=== PATIENT | female | born 1940 | race Caucasian/White ===

== ENCOUNTER → 2024-09-17 | Outpatient (CLI) | payer MEDICARE ==
[2024-09-17 12:25] LABS: Source, Urine Clean Catch
== END | disposition home or self-care (01) ==
LOC: LAB SHORT 12:23 → LAB 12:23
PROVIDERS: Chiropractor
DX: N39.0 Urinary tract infection, site not specified (principal); R82.4 Acetonuria
CPT/HCPCS: 81015; 87077; 87086; 87186

== ENCOUNTER 2024-09-27 08:30 | Inpatient (IN) | payer MEDICARE ==
[~2024-09-27] VITALS: Ht 152.4 cm; Wt 45.4 kg
[2024-09-27 09:02] LABS: Source, Urine Clean Catch
[2024-09-27] MEDS ORDERED: NS 1,000 ML IV SCH ×3 (09:05→11:50)
[2024-09-27 09:07] LABS: BASOPHILS ABSOLUTE AUTO 0.03 K/mm3 (0.00-0.23); BASOPHILS PERCENT AUTO 0 % (0-2); EOSINOPHILS ABSOLUTE AUTO 0.01 K/mm3 (0.00-0.68); EOSINOPHILS PERCENT AUTO 0 % (0-6); Hematocrit 43.3 % (33.0-51.0); Hemoglobin 14.5 g/dL (11.5-16.0); IMMATURE GRAN ABSOLUTE AUTO 0.08 K/mm3 (0.00-0.10); IMMATURE GRAN PERCENT AUTO 1 % (0-1); LYMPHOCYTES ABSOLUTE AUTO 2.38 K/mm3 (0.84-5.20); LYMPHOCYTES PERCENT AUTO 22 % (21-46); MONOCYTES ABSOLUTE AUTO 0.92 K/mm3 (0.16-1.47); MONOCYTES PERCENT AUTO 9 % (4-13); Mean Corpuscular HGB Conc 33.5 g/dL (31.5-36.5); Mean Corpuscular Volume 86 fL (80-100); NEUTROPHILS ABSOLUTE AUTO 7.28 K/mm3 (1.96-9.15); NEUTROPHILS PERCENT AUTO 68 % (41-73); NRBC ABSOLUTE 0.00 K/mm3 (0.00-0.02); NRBC Auto 0.0 /100 WBC (0.0-0.2); Platelet Count 252 K/mm3 (150-400); RDW Coefficient Variation 13.7 % (11.7-14.2); RDW Standard Deviation 42.5 fL (35.1-46.3)
[2024-09-27 09:22] LABS: Bilirubin, Urine Neg (Neg); Color, Urine Yellow (P-Yellow); Glucose Qualitative, Urine Neg (Neg); Ketones, Urine 3+ (Neg); Leukocyte Esterase, Urine 1+ (Neg); Protein, Urine 2+ (Neg); Specific Gravity, Urine 1.030 (1.003-1.022); Urobilinogen, Urine NORM (Normal)
[2024-09-27 09:35] LABS: Red Blood Cells, Urine 0-2 /hpf (0-2)
[2024-09-27 09:46] LABS: Osmolality, Serum 308.0 mos/KG (275-300)
[2024-09-27 10:09] LABS: Creatinine, Urine Random 77.1 mg/dL (27.00-270.00); Sodium, Urine, Random 9.0 mmol/L (20-110); Urea Nitrogen, Urine, Random 799.0 mg/dL (350-1000)
[2024-09-27 10:09] LABS: Alanine Aminotransfer (ALT/SGP 37.0 U/L (12-78); Albumin, Blood 2.8 g/dL (3.4-5.0); Albumin/Globulin Ratio 0.5 (0.8-1.8); Anion Gap 13.0 mmol/L (3-11); Aspartate Aminotrans (AST/SGOT 63.0 U/L (12-37); Bilirubin, Total 0.7 mg/dL (0.1-1.0); Blood Urea Nitrogen 48.0 mg/dL (8-24); CO2, Blood 30.0 mmol/L (21-32); Calcium, Blood 15.2 mg/dL (8.5-10.1); Chloride, Blood 89.0 mmol/L (98-108); Creatinine, Blood 1.04 mg/dL (0.40-1.00); Globulin, Blood 5.3 g/dL (2.2-4.0); Glucose, Blood 102.0 mg/dL (70-99); Potassium, Blood 3.2 mmol/L (3.5-5.5); Sodium, Blood 129.0 mmol/L (136-145); Total Protein, Blood 8.1 g/dL (6.4-8.2)
[2024-09-27] MEDS ORDERED: CefTRIAXone Sodium 1,000 MG in NS 100 ML IV ONE (10:15)
[2024-09-27] MEDS ORDERED: Calcitonin Salmon 200 IU/ML 2ML Vial IM ONE (10:20)
[2024-09-27 10:44] LABS: Magnesium, Blood 1.7 mg/dL (1.6-2.4); Phosphorus, Blood 3.3 mg/dL (2.5-4.9)
[2024-09-27 15:14] VITALS: BP 154/83
[2024-09-27] MEDS ORDERED: Polyethylene Glycol 3350 17 gm PO SCH (17:00)
[2024-09-27 19:47] VITALS: BP 117/95
[2024-09-27] MEDS ORDERED: OxyCODONE 5 mg/Acetamin 325 mg TABLET PO PRN (21:55)
[2024-09-28 04:30] VITALS: BP 165/58
--- NOTE | 2024-09-28 05:07 | NUR ---
SHIFT SUMMARY PT ADMITTED DUE TO INCREASED WEAKNESS, BHAVANA AND UTI. A&OX3. ABLE TO MAKE NEEDS KNOWN BUT HAS INTERMITTENT CONFUSION. BLADDER SCAN PERFORMED DUE TO DIFFICULTY URINATING AND SCAN SHOWED URINE RETENTION OF >450 MLS. STRAIGHT CATH PERFORMED AND 650 MLS LIGHT YELLOW URINE REMOVED. PT ALSO VERY CONSTIPATED. HAD XLARGE BM WITH ASSISTANCE. PT ABLE TO TAKE A FEW BITES OF FOOD BUT THEN REFUSED. DRINKING WATER WITH ASSISTANCE. WAS ABLE TO DRINK APPROXIMATELY HALF OF AN ENSURE. SIGNIFICANT PAIN THROUGHOUT SHIFT. NEW ORDERS RECEIVED FOR PERCOCET WHICH WAS GIVEN. PAIN BETTER MANAGED WITH THIS AND PT WAS ABLE TO SLEEP. PALLIATIVE CARE CONSULT ORDERED DUE TO CONCERN FOR FAILURE TO THRIVE. PT CURRENTLY RESTING IN BED AT LOWEST POSITION, RAILS X 2 AND CALL LIGHT WITHIN REACH.
[2024-09-28 05:49] LABS: Hematocrit 36.6 % (33.0-51.0); Hemoglobin 12.2 g/dL (11.5-16.0); Mean Corpuscular HGB Conc 33.3 g/dL (31.5-36.5); Mean Corpuscular Volume 87 fL (80-100); NRBC ABSOLUTE 0.00 K/mm3 (0.00-0.02); NRBC Auto 0.0 /100 WBC (0.0-0.2); Platelet Count 197 K/mm3 (150-400); RDW Coefficient Variation 13.8 % (11.7-14.2); RDW Standard Deviation 43.8 fL (35.1-46.3)
[2024-09-28 06:21] LABS: Magnesium, Blood 1.3 mg/dL (1.6-2.4)
[2024-09-28 06:26] LABS: Alanine Aminotransfer (ALT/SGP 28.0 U/L (12-78); Albumin, Blood 2.3 g/dL (3.4-5.0); Albumin/Globulin Ratio 0.6 (0.8-1.8); Anion Gap 8.0 mmol/L (3-11); Aspartate Aminotrans (AST/SGOT 43.0 U/L (12-37); Bilirubin, Total 0.5 mg/dL (0.1-1.0); Blood Urea Nitrogen 36.0 mg/dL (8-24); CO2, Blood 26.0 mmol/L (21-32); Chloride, Blood 105.0 mmol/L (98-108); Creatinine, Blood 0.86 mg/dL (0.40-1.00); Globulin, Blood 4.1 g/dL (2.2-4.0); Glucose, Blood 123.0 mg/dL (70-99); Phosphorus, Blood 1.6 mg/dL (2.5-4.9); Potassium, Blood 3.2 mmol/L (3.5-5.5); Sodium, Blood 136.0 mmol/L (136-145); Total Protein, Blood 6.4 g/dL (6.4-8.2)
[2024-09-28 06:27] LABS: Calcium, Blood 10.5 mg/dL (8.5-10.1)
--- NOTE | 2024-09-28 07:04 | NUR ---
STRAIGHT CATH WAS DONE PT STILL HAD NO OUTPUT AND KEPT STATING THAT SHE FELT LIKE SHE NEEDED TO GO BUT EVEN AFTER SEVERAL ATTEMPTS WAS UNABLE TO GO. MD HAD ORDERED TO PUT IN A ALFONSO IF PT WASNT ABLE TO URINATE AFTER FIRST STRAIGHT CATH WAS DONE. ALFONSO CATH WAS PUT IN PT TOLERATED WELL
[2024-09-28 07:41] VITALS: BP 159/68
[2024-09-28] MEDS ORDERED: Lidocaine 4% 1 Patch TOP SCH (09:00)
[2024-09-28] MEDS ORDERED: Enoxaparin 30 MG/0.3 ML SYR SC SCH (09:00)
[2024-09-28] MEDS ORDERED: CefTRIAXone Sodium 1,000 MG in NS 100 ML IV SCH (09:00)
[2024-09-28] MEDS ORDERED: Potassium Chloride 10 Meq Tablet SA PO ONE (09:50)
[2024-09-28] MEDS ORDERED: Potassium Phosphate Dibasic 30 MM in Dextrose 5% 500 ML IV STA (10:18)
[2024-09-28] MEDS ORDERED: Magnesium Sulf 2 GM/Water 50ML 50 ML IV ONE (10:20)
[2024-09-28 15:18] VITALS: BP 166/75
[2024-09-28] MEDS ORDERED: Ergocalciferol 50000 Intn'l Units PO SCH (17:00)
--- NOTE | 2024-09-28 18:12 | NUR ---
SUMMARY- PT A/O X3, WITHDRAWN VERBAL AND PLEASANT. TOLERATING SIPS WATER AND ABOUT 10-25% OF EACH MEAL. GOT UP WITH PHYSICAL THERAPY TO THE CHAIR FOR A FEW MINUTES AND BACK TO BED SHE WAS SOILED. PT TURNED Q2 WHILE IN BED. MEDICATED WITH PERCOCET 5MG APPROX Q4-5 HRS. PT STATES PARTIAL RELEIF BUT STILL FEELS TOO MUCH PAIN FOR GETTING UP OOB. PT HAD BEEN UNABLE TO VOID LAST NIGHT FOR THE 2ND TIME SO ALFONSO PLACED 0630. DRAINING MED/LIGHT YELLOW. PT HAD MULT ELECTROLYTE REPLACEMENT TODAY, WILL FOLLOW UP IN AM. VSS, AFIBRILE. SISTER IN THE ROOM MOST OF THE DAY, INVOLVED IN PT'S CARE. WILL REPORT TO NOC MAGALIS
[2024-09-28 19:19] VITALS: BP 167/72
[2024-09-29 04:16] VITALS: BP 184/69
[2024-09-29 05:45] LABS: Magnesium, Blood 1.5 mg/dL (1.6-2.4)
[2024-09-29 05:46] LABS: Anion Gap 8.0 mmol/L (3-11); Blood Urea Nitrogen 29.0 mg/dL (8-24); CO2, Blood 25.0 mmol/L (21-32); Calcium, Blood 10.6 mg/dL (8.5-10.1); Chloride, Blood 105.0 mmol/L (98-108); Creatinine, Blood 0.82 mg/dL (0.40-1.00); Glucose, Blood 103.0 mg/dL (70-99); Phosphorus, Blood 3.1 mg/dL (2.5-4.9); Potassium, Blood 3.6 mmol/L (3.5-5.5); Sodium, Blood 134.0 mmol/L (136-145)
--- NOTE | 2024-09-29 05:54 | NUR ---
SHIFT SUMMARY PT HERE FOR BHAVANA. SHE HAS BEEN RESTING IN BED OVERNIGHT. SHE HAS BEEN ON BEDREST, DUE TO LUMBAR FRACTURE. PT HAS ALSO HAD A LOW DESIRE TO MOVE DUE TO THIS FRACTURE. PT HAS BEEN AOX4, WITH FORGETFULNESS EPISODICALLY. SHE HAS CALLED APPROPRIATELY. PT HAS HAD ALFONSO CATHETER, PATENT AND DRAINING BY GRAVITY. OTHER THAN PAIN, SHE HAS HAD NO COMPLAINTS OVERNIGHT. PT HAD UNEVENTFUL NIGHT.
[2024-09-29 07:14] VITALS: BP 177/70
[2024-09-29] MEDS ORDERED: Magnesium Sulf 2 GM/Water 50ML 50 ML IV ONE (10:30)
[2024-09-29 16:19] VITALS: BP 197/66
--- NOTE | 2024-09-29 18:12 | NUR ---
SUMMARY- PT A/O X4, VERBAL AND COOPERATIVE, INTERACTS WITH STAFF APPROPRIATELY. MEDICATED WITH PERCOCET 5MG AND TYLENOL 650MG REQUESTED BY DR SEARS. ALSO ADDED FLEXORIL. PT STATES ADQ RELEIF OF PAIN WITH ACTIVITY OF TURNING IN BED,BUT DECLINED TO GET INTO THE CHAIR FOR BREAKFAST AND LUNCH. STILL HAS A DECREASED APPETITE BUT CONSUMED APPROX 25% OF EACH MEAL. PT HAS A ALFONSO FOR RETENTION, CONT NS AT 100ML/HR. URINE LIGHT/MED YELLOW. CONT WITH MIRILAX TO PREVENT CONSTIPATION, NO BM TODAY. PLAN FOR SNF TOMORROW. SISTER CHING HERE TO VISIT ALL WEEKEND, AND HAS TO GO BACK TO [place] WHERE SHE LIVES. WILL REPORT TO JOSE A RN
--- NOTE | 2024-09-29 18:35 | NUR ---
LAB INSTRUCTED 24HR URINE ELECTROPHORESIS TO BE STARTED FIRST THING IN THE AM 09/30 AFTER FIRST URINE WAISTED AND TO KEEP ON ICE.
[2024-09-29 19:14] VITALS: BP 157/65
[2024-09-30 02:20] LABS: VITAMIN D,1,25-DIHYDROXY <5.0 pg/mL (19.9-79.3)
[2024-09-30 04:03] VITALS: BP 206/69
[2024-09-30 05:31] VITALS: BP 189/72
[2024-09-30 07:02] VITALS: BP 189/73
--- NOTE | 2024-09-30 07:29 | NUR ---
POLYSOMNOGRAPHIC TECH SUMMARY: PT A&O X3-4. MAKES NEEDS KNWON. 24HR URINE STARTED AT 0600 THIS AM. ALFONSO DRAINING YELLOW URINE TO GRAVITY. NS INFUSING AT 100ML /HR. PT BP ELEVATED, MEDICATED WITH PRN FLEXERIL AND PERCOCET FOR PAIN, MILDLY EFFECTIVE. PT ASYMPTOMATIC WITH ELEVATED BP READINGS. DISCUSSED WITH CODING TECH. DR. BRNOSON NOTIFIED OF BP READINGS. DAY SHIT RN NOTIFIED. CONTINUE TO MONITOR AT THIS TIME. BED IN LOWEST POSITION. CARES ONGOING ORDERED.
[2024-09-30 07:40] LABS: Magnesium, Blood 1.6 mg/dL (1.6-2.4)
[2024-09-30 07:41] LABS: Anion Gap 8.0 mmol/L (3-11); Blood Urea Nitrogen 24.0 mg/dL (8-24); CO2, Blood 25.0 mmol/L (21-32); Calcium, Blood 11.5 mg/dL (8.5-10.1); Chloride, Blood 108.0 mmol/L (98-108); Creatinine, Blood 0.86 mg/dL (0.40-1.00); Glucose, Blood 105.0 mg/dL (70-99); Phosphorus, Blood 2.6 mg/dL (2.5-4.9); Potassium, Blood 3.1 mmol/L (3.5-5.5); Sodium, Blood 138.0 mmol/L (136-145)
[2024-09-30 15:37] VITALS: BP 185/68
--- NOTE | 2024-09-30 18:37 | NUR ---
NOTE PT ALERT AND COOPERATIVE WITH CARE. HER PAIN IS LIMITING HER ABILITY TO PARTICIPATE WITH THERAPY AND ADL'S. LIDOCAINE PATCH WAS NO HELP. PT HAD EXPRESSED A DESIRE TO GET UP FOR DINNER BUT WHEN DINNER ARRIVED SHE REFUSED. REPOSTIONED FOR SKIN PROTECTION AND SUPPORTED WITH PILLOWS. BED LOW AND LOCKED. CALL LIGHT IN REACHJ. CARE ONGOING.
[2024-09-30 20:50] VITALS: BP 184/95
[2024-10-01 02:17] VITALS: BP 202/68
[2024-10-01 03:16] VITALS: BP 184/69
--- NOTE | 2024-10-01 04:05 | NUR ---
PRIVATE SECTOR EXECUTIVE SUMMARY: PT PAIN MANAGEMENT HAS BEEN POOR D/T BACK PAIN. NEW ORDER RECEIVED FOR TRAMADOL 50MG PO Q 8HR PRN PAIN. ADMINISTERED TO PT FOR BACK PAIN; EFFECTIVE. PT MEDICATED WITH PRN FLEXERIL AND PERCOCET; EFFECTIVE. TRAMADOL MORE EFFECTIVE THAN PERCOCET AND FLEXERIL. NO ACUTE EVENTS T/O SHIFT. 24 HR URINE COLLECTION CONTINUES. ALFONSO DRAINING CLEAR YELLOW URINE. TURN SHCEDULE IN PLACE. BED IN LOWEST POSITION. CARES ONGOING ORDERED. CALL LIGHT IN REACH.
[2024-10-01 07:14] VITALS: BP 193/73
[2024-10-01 08:17] LABS: ALPHA 1 GLOBULIN 0.32 g/dL (0.19-0.46); ALPHA 2 GLOBULIN 0.76 g/dL (0.48-1.05); BETA GLOBULIN 1.01 g/dL (0.48-1.10); GAMMA 1.50 g/dL (0.62-1.51)
[2024-10-01 10:58] LABS: Albumin, Blood 2.0 g/dL (3.4-5.0); Anion Gap 9 mmol/L (3-11); Blood Urea Nitrogen 26 mg/dL (8-24); CO2, Blood 29 mmol/L (21-32); Chloride, Blood 104 mmol/L (98-108); Creatinine, Blood 1.02 mg/dL (0.40-1.00); Glucose, Blood 122 mg/dL (70-99); Phosphorus, Blood 3.8 mg/dL (2.5-4.9); Potassium, Blood 3.4 mmol/L (3.5-5.5); Sodium, Blood 139 mmol/L (136-145)
--- NOTE | 2024-10-01 11:03 | NUR ---
NOTE PT UP IN CHAIR WITH O/T. PT EXPRESSED THAT HER PAIN IS NOT IMPROVED WITH TRAMADOL. SHE STATED THAT ," I WISH I WERE . WHATS THE POINT OF LIVING IF I CAN'T MOVE." ANSKED CLARIFYING QUESTIONS AND OFFERED PALATIVE CARE. CARE ONGOING.
[2024-10-01 11:14] LABS: Calcium, Blood 13.7 mg/dL (8.5-10.1)
--- NOTE | 2024-10-01 11:20 | NUR ---
CRITICAL LAB RESULTS RECEIVED, [facility] LEVEL 13.7, BEDSIDE NURSE ADVISED OF RESULTS.
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
[2024-10-01] MEDS ORDERED: NS 1,000 ML IV SCH (12:00)
--- NOTE | 2024-10-01 14:00 | NUR ---
MET PT THIS AFTERNOON PER PRIMARY RN'S REQUEST. PT REPORTEDLY IS STARTING TO DECLINE MEDICATIONS AND LACKS MOTIVATION TO PARTICIPATE IN CARES. PT ENDDORSES GENERALIZED JOINT PAIN WITH FOCUS ON HER L-SPINE. SHE DENIES ANY FALLS OR INJURIES. PT WOULD BENEFIT FROM CONTROLLED RELEASE ANALGESIC FOR BETTER PAIN MANAGEMENT. ALSO RECOMMEND SCHEDULED APAP FOR BONE/JOINT PAIN. PRIMARY RN TO CONTACT PROVIDER FOR ORDERS. THIS PC RN CONTACTED PT'S FRIEND SREE PER HER REQUEST. UPDATED SREE WITH PT'S MEDICALLY FRAGILE STATE AND HER RECENT DECLINING OF MEDICAL INTERVENTIONS. SHE DECLINED A NEW IV START FOR IV FLUIDS. PLAN TO REASSESS PAIN SYMPTOMS AND EFFECTIVENESS OF INTERVENTIONS. POSSIBLE GOALS OF CARE CONVERSATION TOMORROW 10/02/24.
--- NOTE | 2024-10-01 15:44 | NUR ---
ENVIRONMENTAL SCIENTIST PT TALKING WITH CHAPLAIN PEDERSEN. NUVIA BROUGHT HER A BIBLE. CARE ONGOING.
--- NOTE | 2024-10-01 16:39 | NUR ---
VISION PT NOTED TO HAVE TROUBLE LOCATING THE STRAW IN HER CUP AND BRINGING IT TO HER MOUTH. SHE RELATES THAT SHE USING A MAGNIFYING MACHINE TO READ HER BIBLE. CARE ONGOING.
[2024-10-01 16:59] VITALS: BP 190/72
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
--- NOTE | 2024-10-01 17:32 | NUR ---
NOTE PT ALERT AND ORIENTED. PARTICIPATED WITH THGERAPY AND STAYED UP IN THE CHAIR FOR SEVERAL HOURS. CONSULTED PALATIVE CARE FOR PAIN MANAGEMENT. NEW PAIN CONTROL MEDCIATION AND SCHEDULE TO START TONIGHT. VSS. STILL NOT EATING MUCH. VISIED WITH REPRODUCTIVE SURGEON TIM. READING GLASSES PROVIDED FOR HER. ALFONSO PATENT. REPOSTIONED AND SUPPORTED WITH PILLOWS FOR SKIN PROTECTION. NO BM TODAY. BOWEL CARE RESUMMED. SEE NOTE ABOUT IV AND HER GOALS OF CARE. CARE ONGOING.
[2024-10-01 18:19] LABS: Calcium, Urine 25.9 mg/dL (< 17.5); Calcium, Urine Calculation 647.5 mg/24hrs (42.0-353.0)
[2024-10-01 19:42] VITALS: BP 196/77
--- NOTE | 2024-10-02 02:41 | NUR ---
BP ELEVATED AT 1946 THIS SHIFT. RN ASKED PATIENT IF RN COULD RECHECK BLOO PRESSURE, PATIENT REFUSED. RN EDUCATED THE REASON FOR THE BP CHECK, PATIENT VERBALIZED UNDERSTANDING BUT STILL DECLINES. PT SAID SHE DID NOT WANT ANY MEDICATION TO BRING BLOOD PRESSURE DOWN AND JUST WANTED TO REST. INSURANCE APPLICATION INVESTIGATOR ATTEMPTED TO RECHECK BLOOD PRESSURE AT 0240 BUT PATIENT DECLINED ONCE AGAIN. PATIENT WAS REEDUCATED ON THE REASON FOR THE BP CHECK BUT PATIENT STILL DECLINES. CALL LIGHT WITHIN REACH
--- NOTE | 2024-10-02 04:45 | NUR ---
PT ALERT AND ORIENTED X4 AND ON ROOM AIR. PATIENT DNR. PATIENT REFUSED TO HAVE VITALS SIGNS TAKEN. PATIENT WAS EDUCATED ABOUT HAVING ELEVATED BLOOD PRESSURE BUT DID NOT WANT ANY MEDICATION FOR IT. PATIENT REFUSED MORING VITAL SIGNS WELL. PATIENT REFUSED TO TAKE SENNA AND COLACE-PATIENT EDUCATED ABT THE RISKS AND BENEFITS OF MEDICATION. PATINT VERBALIZES UNDERSTANDING BUT STILL DECLINES. ALFONSO IN PLACE FOR RETENTION. NO IV ACCESS. PATIENT ORIENTED TO OWN ABILITY. BED IN LOW POSITON WITH WHEELS LOCKED. CALL LIGHT WITHIN REACH.
[2024-10-02 06:50] LABS: Magnesium, Blood 1.3 mg/dL (1.6-2.4)
[2024-10-02 07:35] LABS: Anion Gap 7.0 mmol/L (3-11); Blood Urea Nitrogen 27.0 mg/dL (8-24); CO2, Blood 29.0 mmol/L (21-32); Calcium, Blood 14.1 mg/dL (8.5-10.1); Chloride, Blood 102.0 mmol/L (98-108); Creatinine, Blood 1.27 mg/dL (0.40-1.00); Glucose, Blood 111.0 mg/dL (70-99); Potassium, Blood 3.3 mmol/L (3.5-5.5); Sodium, Blood 135.0 mmol/L (136-145)
[2024-10-02 08:13] VITALS: BP 195/75
[2024-10-02] MEDS ORDERED: Atropine Sulfate 1% Opth Soln 2ML BTL SL PRN (14:40)
[2024-10-02 15:08] VITALS: BP 179/70
--- NOTE | 2024-10-02 15:32 | NUR ---
GOALS OF CARE CONVERSATION WITH PT. SPENT APX 75 MINUTES WITH PT. THERPUTIC LISTENING PROVIDED. ENMANUEL NEED TO REVIEW SOME OF HER LIFE STRUGGLES TO PROCESS WHERE HER SOCIAL AND MEDICAL NEEDS ARE NOW. ENMANUEL DOES NOT WANT TO CONTINUE WITH BP CHECKS, LABS, ECT. SHE REQUESTED HER CARE BE FOCUSED ON COMFORT AND QUALITY OF LIFE. PT AGREEABLE TO HOSPICE AND WOULD LIKE TO MAINTAIN MUCH INDEPENDENCE POSSIBLE. PLAN: CONTINUE ABX FOR COMFORT. CM TO ASSIST WITH D/C PLAN AND POSSIBILITY OF [facility]. PC TO REMAIN AVAILABLE NEEDED. UPDATE PROVIDED TO PRIMARY RN, SUPERVISOR ELECTRIC AND CM.
--- NOTE | 2024-10-02 18:46 | NUR ---
SUMMARY- PT A/O X3, WITHDRAWN BUT PLEASANT AND COOPERATIVE. PT MADE COMFORT CARE TODAY, WILL DC TO [facility]- FAMILY CAME TO EVAL PT FOR THEIR HOUSE, ARRANGEMENTS TO BE MADE BY HYDRO ELECTRIC STATION OPERATOR- PT GOT UP TO CHAIR WITH PHYSICAL THERAPY TODAY. TURN Q2 IN BED. BED BATH AT 1730, SKIN REMAINS INTACT. MEDICATED WITH MS CONTIN IN AM, AND PERCOCET X2 TODAY. TOLERATING ABOUT 20% MEALS. WILL REPORT TO NOC RN
--- NOTE | 2024-10-03 04:05 | NUR ---
SHIFT SUMMARY ADMITTED FOR BHAVANA/UTI, DEHYDRATION. DNR CODE. COMFORT CARE. PLAN IS FOR DC TO [facility]. PO ANTIB ARE SCHEDULED. PALLIATE CARE IS CONSULTED. ON RA, REGULAR DIET. A&O X3-4. 2 MAX ASSIST W/FWW & GB TO BSC. CRUSH RX IN SAUCE. ALFONSO IN PLACE FOR RETENTION.
--- NOTE | 2024-10-03 11:20 | NUR ---
NOTE THIS AM PALLIATIVE CARE IN ROOM. THIS RN BROUGHT PT MEDS AND CRUSHED MEDS. NIGHT RN REPORTED PT HAS DIFFICULTY SWALLOWING AND TAKES MEDS CRUSHED IN APPLESAUCE. PALLIATIVE CARE GAVE REMINDER THAT MS CONTIN CAN'T BE CRUSHED. PALLIATIVE CARE REPORTED "PT CAN TAKE MEDS WHOLE W WATER." CALLED PHARMACY TO NOTE OK TO PULL ORAL MEDS DUE TO MEDS BEING CRUSHED TOGETHER. ROLDAN RN WITNESSED WASTE. THIS RN PULLED ALL ORAL MEDS FROM [facility]. THIS RN GAVE ONE TYLENOL AND MS CONTIN WHOLE WITH APPLE SAUCE ONE AT A TIME, PT NOTED TO SWALLOW PILL, PT PRODUCED EMESIS. PT HAD GOWN CHANGE. PALLIATIVE CARE ASSISTED WITH ADMINISTERING MEDS WHOLE WITH APPLESAUCE. PT ABLE TO GET ANOTHER TYLENOL DOWN. PT REF TO CONTINUE WITH COLACE AND ANTIBIOTIC. LIDOCAINE PATCH APPLIED ON BACK FOR PAIN RELIEF. PT REPORTS "DON'T FEEL LIKE GOING TO PRODUCE EMESIS AGAIN." PT IN BED. BED IN LOWEST POSITION CALL LIGHT IN REACH.
[2024-10-03] MEDS ORDERED: ACET325 PO (11:59)
[2024-10-03] MEDS ORDERED: ATROPINE SULFATE2 M1 SL (14:06)
[2024-10-03] MEDS ORDERED: Cyclobenzaprine5 MG PO (14:07)
[2024-10-03] MEDS ORDERED: Colace100 MG PO (14:10)
[2024-10-03] MEDS ORDERED: ASPERFLEX1 EACH TOP (14:10)
[2024-10-03] MEDS ORDERED: MORP15ER PO (14:11)
[2024-10-03] MEDS ORDERED: MIRALAX17 GM PO (14:12)
[2024-10-03] MEDS ORDERED: Percocet 5-3251 EACH PO (14:12)
--- NOTE | 2024-10-03 19:23 | NUR ---
SHIFT SUMMARY PT A&OX4. PT ADMITTED DUE TO WEAKNESS. PT ON COMFORT CARE, COMFORT CARE ASSESSMENT COMPLETE. ORAL CARE COMPLETE. PT REPORTS PAIN WITH MOVEMENT, PAIN MANAGED PER EMAR. PT IS A 2 PERSON ASSIST, DECLIND SITTING IN CHAIR TODAY. PT HAS ALFONSO, ALFONSO DRAINING ADEQUATE WITH NO DEPENDENT LOOPS. PT HAS NO IV ACCESS ORDER. PT IN BED, BED IN LOWEST POSITION, CALL LIGHT IN REACH. PLAN IS TO DISCHARGE AT 10AM TO [facility]. PT TURNED Q2.
--- NOTE | 2024-10-04 03:47 | NUR ---
SHIFT SUMMARY ADMITTED FOR BHAVANA/UTI. DNR CODE. COMFORT CARE. PLAN IS FOR DC TO [facility] TODAY. SHE IS ON RA, REGULAR DIET, 2 MAX ASSIST TO BSC. ALFONSO IN PLACE FOR RETENTION. WE ARE CRUSHING MEDS IN APPLESAUCE DUE TO SWALLOWING CONCERNS. PALLIATIVE CARE IS CONSULT. NO IV ACCESS. Q2 TURNS.
--- NOTE | 2024-10-04 09:14 | NUR ---
DISCHARGE NOTE PT A&OX4. PT ADMITTED DUE TO WEAKNESS. PT REPORTS PAIN, PAIN MANAGED PER EMAR. MEDICINAL PLANT PICKER CALLED AND REPORTED PT LEAVES AT 0900AM. ORAL CARE COMPLETE. MOISTURIZER APPLIED ON LIPS. PT IS 2 P ASSIST THE CHAIR. PT IN BED THIS AM RESTING WITH EYES CLOSED. PT AWAKE TO TAKE ORAL MEDS. LIDOCAINE PATCH APPLIED. PT DECLINED BREAKFAST. TRANSPORT CAME TO ESCORT PT TO FACILITY. PT TOOK ALL BELONGINGS. ALFONSO IN PLACE, DRAINING ADEQUATE. PT HAD NO IV ORDER.
[2024-10-04 14:39] LABS: PTHRP BY LC-MS/MS,PLASMA 3.5 pmol/L (0.0-3.4)
[2024-10-07 05:00] LABS: ALBUMIN %,URINE 48.2 %; ALPHA-1 %,URINE 20.2 %; ALPHA-2 %,URINE 2.8 %; BETA GLOBULIN %,URINE 4.8 %; GAMMA GLOBULIN %,URINE 24.0 %; HOURS COLLECTED 24 hr; PARAPROTEIN %,URINE 0.0 %; PARAPROTEIN EXCRETION/24 HOUR 0.0
== END 2024-10-04 09:10 | DRG 682 ==
LOC: ER 08:30 → ERHOLD 11:48 → MEDS 11:48 → ENPENDDIS 10-03 14:13 → MEDS 10-04 09:10
PROVIDERS: Student in an Organized Health Care Education/Training Program; ADMIT Internal Medicine
PROC: 3E03329 Introduction of Other Anti-infective into Peripheral Vein, Percutaneous Approach (ICD-10-PCS; 2024-09-27)
PROC: 0T9B70Z Drainage of Bladder with Drainage Device, Via Natural or Artificial Opening (ICD-10-PCS; principal; 2024-09-28)
DX: N17.9 Acute kidney failure, unspecified (principal); E43 Unspecified severe protein-calorie malnutrition; E87.1 Hypo-osmolality and hyponatremia; M48.56XA Collapsed vertebra, not elsewhere classified, lumbar region, initial encounter for fracture; N39.0 Urinary tract infection, site not specified; Z68.1 Body mass index [BMI] 19.9 or less, adult; K59.00 Constipation, unspecified; Z51.5 Encounter for palliative care; Z66 Do not resuscitate; E87.6 Hypokalemia; R33.9 Retention of urine, unspecified; E86.0 Dehydration; E87.8 Other disorders of electrolyte and fluid balance, not elsewhere classified; E55.9 Vitamin D deficiency, unspecified; B96.5 Pseudomonas (aeruginosa) (mallei) (pseudomallei) as the cause of diseases classified elsewhere; I10 Essential (primary) hypertension; Z60.2 Problems related to living alone; Z91.148 Patient's other noncompliance with medication regimen for other reason
CPT/HCPCS: 36415; 74018; 80048; 80053; 80069; 81001; 82306; 82330; 82340; 82542; 82570; 82652; 83735; 83930; 83970; 84100; 84155; 84156; 84165; 84166; 84300; 84443; 84540; 85025; 85027; 86335; 87077; 87086; 87186; 93005; 93010; 96365; 96367; 96372-59; 97110; 97161; 97165; 97530; 97535; 99285-25; A6590; A9270; J0630; J0696; J1650; J3475; J3480; J7030; J7050; J7060